=== PATIENT | female | born 1940 | race Caucasian/White ===

== ENCOUNTER 2018-02-28 21:26 | Emergency (ER) | payer OTHER ==
[~2018-02-28] VITALS: Ht 162.6 cm; Wt 63.5 kg
[~2018-02-28 21:26] MED LIST: LEVOTHYROXINE0.05 MG PO; PERCOCET 5-3251 EACH PO
--- NOTE | 2018-02-28 22:52 | ED ANIMAL BITE/WOUND CHECK ---
History of Present Illness General Chief Complaint: Animal/Insect Bite Stated Complaint: ANIMAL BITE Source: patient Exam Limitations: no limitations Vital Signs & Intake/Output Vital Signs & Intake/Output Vital Signs Date Time Temp Pulse Resp B/P B/P Pulse O2 O2 Flow FiO2 Mean Ox Delivery Rate 02/28 2333 97.1 81 19 134/69 99 Room Air 02/28 2150 96.4 86 18 128/78 98 Room Air ED Intake and Output 03/01 0000 02/28 1200 Intake Total Output Total Balance Patient 140 lb Weight Weight Reported by Patient Measurement Method Allergies Coded Allergies: red dye (RASH 09/26/16) Reconcile Medications Amoxicillin/Potassium Clav (Augmentin 875-125 Tablet) 875 MG-125 MG TABLET 1 TAB PO BID DOG BITE Levothyroxine Sodium 50 MCG TABLET 1 TAB PO DAILY THYROID PROBLEMS (Reported) Oxycodone HCl/Acetaminophen (Percocet 5-325 MG Tablet) 5 MG-325 MG TABLET 1-2 TAB PO Q6P PRN PAIN Triage Note: PT FROM HOME C/O DOG BITE TO THE BOTTOM RIGHT SIDE OF LIP AND RIGHT THUMB AROUND 1930. PT STATES SHE PUT THE DOG TO BED WITH HER AND ATTACKED PT. PT CRYING IN TRIAGE NON-STOP. PTS VSS. PT HAS LAC TO BOTTOM RIGHT SIDE OF LIP AND SMALL LAC TO RIGHT THUMB. BOTH LACS BLEEDING CONTROLLED BEFORE TRIAGE. Triage Nurses Notes Reviewed? yes Onset: Abrupt Duration: hour(s): (2), constant, continues in ED Timing: single episode today Injury Environment: home Is Injury an Animal Bite? Yes Animal Type: dog, family pet Context of Animal Attack: approached animal Appearance of Animal: appeared well Animal Immunization Status: up to date Observation/Capture: animal known/obs x10 days Severity of Attack: bitten Severity: moderate Severity Numbers: 4 No Modifying Factors: none LMP (ages 10-50): post menopausal : No Patient currently breastfeeds: No HPI: 78-year-old female past medical history of anxiety, depression presents for evaluation of a dog bite to her lower lip and right thumb. Patient reports that didn't by her family pet about 2 hours prior to presentation. The dog is up-to- date on vaccines patient is unsure of her last tetanus shot. She denies any pain with range of motion no difficulty swallowing no swelling of her lips or throat. (Chris Fernandez) Past History Travel History Traveled to [place] past 21 day No Medical History Any Pertinent Medical History? see below for history Neurological: NONE EENT: LEFT EYE "POOR VISION" Cardiovascular: NONE Respiratory: NONE Gastrointestinal: NONE Hepatic: NONE Renal: NONE Musculoskeletal: NONE Psychiatric: anxiety, depression Endocrine: hypothyroidism Blood Disorders: NONE Cancer(s): NONE PRIMARY OPERATOR/Reproductive: NONE Surgical History Surgical History: non-contributory Psychosocial History What is your primary language Bulgarian Tobacco Use: Current Daily Use Daily Tobacco Use Amount/Type: => 5 Cigarettes daily Family History Hx Contributory? No (Chris Fernandez) Review of Systems Review of Systems Constitutional: Reports: no symptoms. EENTM: Reports: no symptoms. Respiratory: Reports: no symptoms. Cardiovascular: Reports: no symptoms. GI: Reports: no symptoms. Genitourinary: Reports: no symptoms. Musculoskeletal: Reports: no symptoms. Skin: Reports: see HPI (dog bite). Neurological/Psychological: Reports: no symptoms. Hematologic/Endocrine: Reports: no symptoms. Immunologic/Allergic: Reports: no symptoms. All Other Systems: Reviewed and Negative (Chris Fernandez) Physical Exam Physical Exam General Appearance: well developed/nourished, no apparent distress, alert, awake Head: atraumatic, normal appearance Eyes: Bilateral: normal appearance, PERRL, EOMI. Ears, Nose, Throat: normal pharynx, hearing grossly normal, there is a less than 0.5 cm puncture wound to the right side of the lower lip. no active bleeding. Small amount of soft tissue swelling. No foreign bodies., no bony point tenderness of the mandible no missing cracked broken teeth Neck: normal inspection, supple, full range of motion Respiratory: no respiratory distress Cardiovascular: normal peripheral pulses Peripheral Pulses: 2+ radial (R), 2+ radial (L) Back: normal inspection, normal range of motion Extremities: normal range of motion, there is a puncture wound to the dorsum of the proximal right thumb. No active bleeding no foreign bodies full range of motion and intact neurovascular spine intact Neurologic/Psych: no motor/sensory deficits, awake, alert, oriented x 3, normal gait Skin: intact, normal color, warm/dry (Chris Fernandez) Progress Differential Diagnosis: abscess, cellulitis, joint infection, tenosysnovitis Plan of Care: Current Medications Sig/Hans Start time Last Medication Dose Stop Time Status Admin Amoxicillin/ 1,000 MG ONCE ONE 02/28 2300 UNVr 02/28 Clavulanate Potassium 02/28 (Augmentin) Tetanus/Diphtheria 0.5 ML ONCE ONE 02/28 2300 UNVr 02/28 Toxoids Adsorbed 02/28 (Decavac) Patient seen and evaluated. She has a dog bite to her lower lip and right thumb. As these are dog bites she will not require sutures. The was cleaned with sterile water and hydrogen peroxide 5050 mix. The thumb was cleaned with Betadine and sterile dressing applied. She was given a dose of Augmentin here and started on Augmentin at home for 10 days. Tetanus updated. Discussed wound care procedures in detail. Apply ice to the lip. Follow-up with primary care doctor for a recheck in a few days discussed return precautions patient agrees (Chris Fernandez) Departure Departure Disposition: HOME OR SELF CARE Condition: Stable Clinical Impression Primary Impression: Dog bite Qualifiers: Encounter type: initial encounter Qualified Code: W54.0XXA - Bitten by dog, initial encounter Referrals: Oneyda BARNES,Jaspreet Tran (PCP/Family) Additional Instructions: Rest, keep the areas clean and dry. Change dressing once daily. Take antibiotics as directed for the full course. Use hydrogen peroxide topically to clean the lip. Also apply ice several times per day for about 15 minutes. Looking up or signs of infection like redness swelling discharge or pain. He should make a follow-up appointment with her primary care doctor for a wound check in a few days. Monitor symptoms return with any concerns. Departure Forms: Customer Survey General Discharge Information Prescriptions: Current Visit Scripts Amoxicillin/Potassium Clav (Augmentin 875-125 Tablet) 1 TAB PO BID #20 TAB (Chris Fernandez) PA/SECURITIES COMPLIANCE EXAMINER Co-Sign Statement Statement: ED Attending supervision documentation- [X] I saw and evaluated the patient. I have also reviewed all the pertinent lab results and diagnostic results. I agree with the findings and the plan of care as documented in the PA's/SECURITIES COMPLIANCE EXAMINER's documentation. [X] I have reviewed the ED Record and agree with the PA's/SECURITIES COMPLIANCE EXAMINER's documentation. [] Additions or exceptions (if any) to the PAs/SECURITIES COMPLIANCE EXAMINER's note and plan are summarized below: [] (Macy BARNES,Jerzy Velez)
[2018-02-28] MEDS ORDERED: AUGMENTIN 875-1 EACH PO (23:24)
[2018-02-28 23:33] VITALS: BP 134/69
== END 2018-02-28 23:34 ==
LOC: ERH 21:26
DX: S01.551A Open bite of lip, initial encounter (principal); S61.051A Open bite of right thumb without damage to nail, initial encounter; W54.0XXA Bitten by dog, initial encounter; Y92.003 Bedroom of unspecified non-institutional (private) residence as the place of occurrence of the external cause; Y93.89 Activity, other specified
CPT/HCPCS: 90471; 90714; J3490